=== PATIENT | female | born 1955 | race African-American/Black ===

== ENCOUNTER 2022-09-04 07:40 | Day surgery (SDC) | payer MEDICARE, MEDICAID ==
[2022-09-03 11:47] VITALS: BMI 26.7
[2022-09-04] MEDS ORDERED: Oxymetazoline HCl 0.05% (30 ML BOT) ONE (09:20)
[2022-09-04 10:17] LABS: Platelet Count 237 10x3/uL (130-400)
[2022-09-04 10:37] LABS: Anion Gap 15 mmol/L (10-20); BUN (Urea Nitrogen) 12 mg/dL (9.8-20.1); Calc. Creatinine Clearance 69 mL/min (70-130); Calcium 10.1 mg/dL (7.8-10.44); Carbon Dioxide 26 mmol/L (23-31); Chloride 103 mmol/L (98-107); Estimated GFR 72; Glucose 91 mg/dL (80-115); Potassium 4.6 mmol/L (3.5-5.1); Sodium 139 mmol/L (136-145)
[2022-09-04] MEDS ORDERED: Lidocaine 1% (PF) 30 ML VIAL ONE (10:59)
[2022-09-04] MEDS ORDERED: fentaNYL PF 100 MCG/2 ML SYRINGE ONE (11:12)
[2022-09-04] MEDS ORDERED: Rocuronium Bromide 10 MG/ML (10ML VIAL) ONE (11:24)
[2022-09-04] MEDS ORDERED: Lidocaine 1% PF 5 ML VIAL ONE (11:24)
[2022-09-04] MEDS ORDERED: PROPOFOL 200 MG/20 ML VIAL ONE (11:24)
[2022-09-04] MEDS ORDERED: Dexamethasone 20 MG/5 ML VIAL ONE (11:24)
[2022-09-04] MEDS ORDERED: Ondansetron PF 4 MG/2 ML Vial ONE (11:24)
[2022-09-04] MEDS ORDERED: ePHEDrine Sulfate 50 MG/10 ML VIAL ONE (11:24)
[2022-09-04] MEDS ORDERED: SUGAMMADEX SODIUM 200 MG/2 ML VIAL ONE (11:59)
== END 2022-09-04 13:43 | disposition home or self-care (01) ==
LOC: SDC 07:40
PROVIDERS: ATTEND Otolaryngology Plastic Surgery within the Head & Neck
PROC: 09BQ0ZZ Excision of Right Maxillary Sinus, Open Approach (ICD-10-PCS; principal; 2022-09-04)
DX: D14.0 Benign neoplasm of middle ear, nasal cavity and accessory sinuses (principal); J32.0 Chronic maxillary sinusitis; E78.00 Pure hypercholesterolemia, unspecified; I10 Essential (primary) hypertension; M19.90 Unspecified osteoarthritis, unspecified site; Z79.899 Other long term (current) drug therapy; Z88.8 Allergy status to other drugs, medicaments and biological substances
CPT/HCPCS: 80048; 85014; 85018; 85049; 88305; 93005; 93010; J1100; J2001; J2405; J2704